=== PATIENT | male | born 1980 | race Caucasian/White ===

== ENCOUNTER 2017-05-29 07:00 | Day surgery (SDC) | payer BC ==
[2017-05-26 11:40] VITALS: BMI 36.1
[2017-05-29 08:13] LABS: #Basophils 0.1 thou/uL (0.0-0.2); #Eosinphils 0.9 thou/uL (0.0-0.7); #Lymphocytes 3.3 thou/uL (1.20-3.40); #Monocytes 0.9 thou/uL (0.11-0.59); %Basophils 1.6 % (0.0-1.0); %Eosinophils 9.2 % (0.0-10.0); %Lymphocytes 35.6 % (21.0-51.0); %Monocytes 10.2 % (0.0-10.0); %Neutrophils 43.5 % (42.0-75.0); Mean Corpuscular HGB CONC 33.1 g/dL (32.0-36.0); Mean Corpuscular Hemoglobin 32.1 pg (27.0-31.0); Mean Corpuscular Volume 96.8 fl (80.0-94.0); Platelet Count 301 thou/uL (130-400); RBC Distribution Width 11.7 % (11.5-14.5); Red Blood Cell (RBC) Count 4.67 mill/uL (4.70-6.10); White Blood Cell (WBC) Count 9.3 thou/uL (4.8-10.8)
[2017-05-29 08:32] LABS: Anion Gap 12 mmol/L (10-20); BUN (Urea Nitrogen) 13 mg/dL (8.9-20.6); Calc. Creatinine Clearance 181 mL/min (70-130); Calcium 9.9 mg/dL (7.8-10.44); Carbon Dioxide 24 mmol/L (22-29); Chloride 105 mmol/L (98-107); Estimated GFR-MDRD 83; Glucose 107 mg/dL (70-105); Potassium 4.2 mmol/L (3.5-5.1); Sodium 137 mmol/L (136-145)
[2017-05-29] MEDS ORDERED: Midazolam HCl 2 mg/2 ml Vial ONE (08:34)
[2017-05-29] MEDS ORDERED: CEFAZOLIN/Water 2 GM/20 ML SYRINGE ONE (08:34)
[2017-05-29] MEDS ORDERED: Sodium Chloride 0.9% 10 ML ONE (09:11)
[2017-05-29] MEDS ORDERED: Clindamycin/D5W 900 mg/50 ml Premix Bag ONE (09:31)
[2017-05-29] MEDS ORDERED: Levofloxacin 500 mg/D5W 100 ml Premix Bag ONE (09:31)
[2017-05-29] MEDS ORDERED: Fentanyl 250 MCG/5 ML VIAL ONE (09:32)
[2017-05-29] MEDS ORDERED: Fentanyl 100 MCG/2 ML VIAL ONE ×3 (10:18→11:55)
--- NOTE | 2017-05-29 10:59 | OP ---
DATE OF SURGERY: 05/29/2017 SURGEON: Darci Malone M.D. PIPING MANAGER: Leo. PROCEDURE PERFORMED: Right L5-S1 laminectomy, facetectomy, foraminotomy, and diskectomy, interbody a rthrodesis, intravertebral biomechanical device, local morselized autograft, demineralized bone matri x, anterior titanium instrumentation, posterolateral arthrodesis, pedicle screw instrumentation, L5-S 1. PROCEDURE IN DETAIL: The patient was brought into the operating room intubated. He was rolled in th e prone position on gel-filled chest rolls. The previous incision was reopened and extended and the right L5-S1 region was exposed. We identified the previous hemilaminectomy and then performed a righ t L5-S1 laminectomy, facetectomy, and foraminotomy. We explored the disk space and found a large ext ruded disk herniation, removed in one very large fragment. A complete decompression of all neural el ements was achieved. Next, the bony endplates at L5-S1 were decorticated for the purpose of arthrode sis and appropriately sized intravertebral biomechanical PEEK device was brought into the field, fill ed with demineralized bone matrix and local morselized autograft, and tapped into place securely at L 5-S1. Next, pedicle screws were placed at right L5 and right S1 using lateral fluoroscopic guidance and the positioning was confirmed by x-ray. Artis was secured between the screws, connected by nuts wh ich were final tightened. The wound was then extensively irrigated, immaculate hemostasis was secure d. A combination of demineralized bone matrix and local morselized autograft was laid over the colby ar and posterolateral surfaces for the purpose of arthrodesis. Vancomycin powder was applied and the wound was then closed in anatomic layers.
[2017-05-29] MEDS ORDERED: Propofol 200 MG/20 ML VIAL ONE (13:43)
[2017-05-29] MEDS ORDERED: PHENYLEPHRINE-NS 100 MCG/ML 10 ML SYRINGE ONE (13:43)
[2017-05-29] MEDS ORDERED: Ondansetron HCl/PF 4 MG/2 ML Vial ONE ×2 (13:43→17:07)
[2017-05-29] MEDS ORDERED: Ketorolac Tromethamine 30 MG/ML VIAL ONE (13:43)
[2017-05-29] MEDS ORDERED: Lidocaine 1% PF 5 ML VIAL ONE (13:43)
[2017-05-29] MEDS ORDERED: Dexamethasone 20 MG/5 ML VIAL ONE (13:43)
--- NOTE | 2017-05-29 17:50 | EKG ---
Test Reason : PREOP Blood Pressure : / mmHG Vent. Rate : 074 BPM Atrial Rate : 074 BPM P-R Int : 158 ms QRS Dur : 076 ms QT Int : 384 ms P-R-T Axes : 047 075 053 degrees QTc Int : 426 ms Normal sinus rhythm Normal ECG No previous ECGs available Confirmed by EASTON CASTANEDA, DR. Correa ([id number]) on 05/29/2017 5:49:41 PM Referred By: RAUL Confirmed By:DR. Madeline MCCORMACK MD
[2017-05-29] MEDS ORDERED: HYDROcodone/Acetaminophen 5/325 mg Tablet ONE (18:51)
[2017-05-29] MEDS ORDERED: Promethazine HCl 25 MG/ML VIAL ONE (19:07)
== END 2017-05-29 19:15 | disposition home or self-care (01) ==
LOC: SDC 07:00
PROVIDERS: ATTEND Neurological Surgery
PROC: 0ST40ZZ Resection of Lumbosacral Disc, Open Approach (ICD-10-PCS; principal; 2017-05-29)
PROC: 0SG30AJ Fusion of Lumbosacral Joint with Interbody Fusion Device, Posterior Approach, Anterior Column, Open Approach (ICD-10-PCS; principal; 2017-05-29)
DX: M54.16 Radiculopathy, lumbar region (principal); Z79.1 Long term (current) use of non-steroidal anti-inflammatories (NSAID); Z88.0 Allergy status to penicillin; Z88.2 Allergy status to sulfonamides; Z91.011 Allergy to milk products; Z91.010 Allergy to peanuts; Z98.818 Other dental procedure status; Z98.890 Other specified postprocedural states
CPT/HCPCS: 36415; 76001; 80048; 85025; 93005; 93010; 96374; 96375; A4216; C1713; C1768; J0131; J1956; J2250; J2405; J2550; J3010; J3370; J3490

== ENCOUNTER 2017-06-14 15:59 | Outpatient (CLI) | payer BC ==
--- NOTE | 2017-06-14 16:17 | RAD ---
TWO VIEWS OF THE LUMBOSACRAL SPINE 06/14/17 COMPARISON: None. HISTORY: Lumbar degenerative disc disease. FINDINGS: Two views of the lumbosacral spine shows the patient to be status post posterior fusion of L5 and S1 with right sided pedicle screws. No perihardware lucency is seen. The vertebral bodies demonstrate no rmal alignment without subluxation. The overlying skin dora are seen from recent surgery. IMPRESSION: Postsurgical changes of the lower lumbosacral space without evidence of complication. POS: [facility]
== END 2017-06-14 16:00 | disposition home or self-care (01) ==
LOC: TBSIIMAG 15:59
PROVIDERS: ATTEND Physician Assistant
DX: M51.36 Other intervertebral disc degeneration, lumbar region (principal)
CPT/HCPCS: 72100

== ENCOUNTER 2017-08-03 12:43 | Outpatient (CLI) | payer BC ==
--- NOTE | 2017-08-03 14:44 | RAD ---
2 VIEWS LUMBAR SPINE: Date: 08/03/17 HISTORY: Back pain FINDINGS/IMPRESSION: Two views of the lumbar spine demonstrate pedicle screws fusing the right L5 and S1 levels. No eviden ce of vertebral body fractures, subluxations, or bony lesions seen. Some subtle posterior osteophytes seen at L4-5. Postsurgical changes seen at L5-S1. No other abnormality seen. POS: [facility]
== END 2017-08-03 12:44 | disposition home or self-care (01) ==
LOC: TBSIIMAG 12:43
PROVIDERS: ATTEND Neurological Surgery
DX: M54.16 Radiculopathy, lumbar region (principal); Z98.890 Other specified postprocedural states; Z98.1 Arthrodesis status
CPT/HCPCS: 72100

== ENCOUNTER 2017-11-16 10:02 | Outpatient (CLI) | payer BC ==
--- NOTE | 2017-11-16 11:21 | RAD ---
LUMBOSACRAL SPINE TWO VIEWS: HISTORY: Fall 1-1/2 months ago with back pain. The patient had back surgery in May 2017. COMPARISON: 08/03/2017 FINDINGS: Two views of the lumbosacral spine show the patient to be status post posterior fusion of L5 and S1 w ith right-sided pedicle screws. No perihardware lucency is seen. The vertebral bodies demonstrate n ormal height and alignment without fracture or subluxation. IMPRESSION: Post surgical changes of the lumbar spine without acute osseous abnormality. POS: [facility]
== END 2017-11-16 10:03 | disposition home or self-care (01) ==
LOC: TBSIIMAG 10:02
PROVIDERS: ATTEND Neurological Surgery
DX: M54.16 Radiculopathy, lumbar region (principal); Z98.890 Other specified postprocedural states
CPT/HCPCS: 72100

== ENCOUNTER 2018-02-14 14:56 | Outpatient (CLI) | payer OTHER ==
--- NOTE | 2018-02-14 17:15 | RAD ---
LUMBAR SPINE THREE VIEW 02/14/18 HISTORY: Lumbar stenosis. COMPARISON: Radiograph 11/16/17. FINDINGS: Similar appearance to the unilateral right sided L5-S1 posterior spinal fusion with hemidiscectomy ch bjorn. No acute fracture. No malalignment. No significant listhesis. IMPRESSION: Unchanged appearance of the posterior spinal fusion hardware. POS: [facility]
== END 2018-02-14 14:57 | disposition home or self-care (01) ==
LOC: TBSIIMAG 14:56
PROVIDERS: ATTEND Neurological Surgery
DX: M51.36 Other intervertebral disc degeneration, lumbar region (principal); Z98.1 Arthrodesis status
CPT/HCPCS: 72100

== ENCOUNTER 2021-06-16 08:00 | Inpatient (IN) | payer BC ==
[2021-06-30 13:07] VITALS: BMI 23.1
[2021-07-05] MEDS ORDERED: Fentanyl 250 MCG/5 ML VIAL ONE ×2 (06:46→09:17)
[2021-07-05] MEDS ORDERED: Midazolam HCl 2 mg/2 ml Vial ONE ×2 (06:46→07:04)
[2021-07-05] MEDS ORDERED: Levofloxacin 500 mg/D5W 100 ml Premix Bag ONE (06:53)
[2021-07-05] MEDS ORDERED: Clindamycin/D5W 900 mg/50 ml Premix Bag ONE (06:53)
[2021-07-05] MEDS ORDERED: Dexamethasone 20 MG/5 ML VIAL ONE (07:25)
[2021-07-05] MEDS ORDERED: diphenhydrAMINE 50 MG/ML VIAL ONE (07:25)
[2021-07-05] MEDS ORDERED: PROPOFOL 200 MG/20 ML VIAL ONE (07:25)
[2021-07-05] MEDS ORDERED: Lidocaine 1% PF 5 ML VIAL ONE (07:25)
[2021-07-05] MEDS ORDERED: GLYCOPYRROLATE/PF 0.2 MG/ML VIAL ONE (07:25)
[2021-07-05] MEDS ORDERED: Ondansetron PF 4 MG/2 ML Vial ONE (07:25)
[2021-07-05] MEDS ORDERED: Ketorolac Tromethamine 30 MG/ML VIAL ONE (07:25)
[2021-07-05] MEDS ORDERED: Rocuronium Bromide 10 MG/ML (10ML VIAL) ONE (07:25)
[2021-07-05] MEDS ORDERED: Tamsulosin HCl 0.4 MG CAP ONE (09:18)
[2021-07-05] MEDS ORDERED: Lidocaine 1% MPF 2 ML VIAL ONE (10:57)
[2021-07-05] MEDS ORDERED: HYDROcodone/Acetaminophen 5/325 mg Tablet ONE (11:03)
== END 2021-07-05 12:10 | disposition home or self-care (01) | DRG 455 ==
LOC: EDSTATUS 06-21 08:00 → SURG A 07-05 05:55
PROVIDERS: ADMIT Neurological Surgery; ATTEND Neurological Surgery
PROC: 0SG00AJ Fusion of Lumbar Vertebral Joint with Interbody Fusion Device, Posterior Approach, Anterior Column, Open Approach (ICD-10-PCS; principal; 2021-07-05)
PROC: 0SG0071 Fusion of Lumbar Vertebral Joint with Autologous Tissue Substitute, Posterior Approach, Posterior Column, Open Approach (ICD-10-PCS; 2021-07-05)
PROC: 0SG3071 Fusion of Lumbosacral Joint with Autologous Tissue Substitute, Posterior Approach, Posterior Column, Open Approach (ICD-10-PCS; 2021-07-05)
PROC: 0QP004Z Removal of Internal Fixation Device from Lumbar Vertebra, Open Approach (ICD-10-PCS; 2021-07-05)
PROC: 0QP104Z Removal of Internal Fixation Device from Sacrum, Open Approach (ICD-10-PCS; 2021-07-05)
PROC: 00NY0ZZ Release Lumbar Spinal Cord, Open Approach (ICD-10-PCS; 2021-07-05)
PROC: 0SB20ZZ Excision of Lumbar Vertebral Disc, Open Approach (ICD-10-PCS; 2021-07-05)
DX: M48.062 Spinal stenosis, lumbar region with neurogenic claudication (principal); Z88.0 Allergy status to penicillin; Z88.2 Allergy status to sulfonamides; Z91.011 Allergy to milk products; Z91.010 Allergy to peanuts; Z01.818 Encounter for other preprocedural examination
CPT/HCPCS: 76000; 80048; 85027; 93005; C1713; C1768; C1776; J1100; J1200; J1885; J1956; J2250; J2405; J2704; J3010; J3370; J3490

== ENCOUNTER 2021-07-02 10:28 | Outpatient (CLI) | payer BC ==
[2021-07-02 12:03] LABS: Hemoglobin 13.9 g/dL (13.5-17.5); Mean Corpuscular HGB CONC 33.4 g/dL (32.0-36.0); Mean Corpuscular Hemoglobin 31.7 pg (27.0-33.0); Mean Platelet Volume 8.9 fl (7.4-10.4); Platelet Count 336 10x3/uL (150-450); RBC Distribution Width 12.8 % (11.5-14.5); Red Blood Cell (RBC) Count 4.38 10x6/uL (4.32-5.72)
[2021-07-02 12:20] LABS: Anion Gap 13 mmol/L (10-20); BUN (Urea Nitrogen) 15 mg/dL (8.9-20.6); Calc. Creatinine Clearance 0 mL/min (70-130); Calcium 9.4 mg/dL (7.8-10.44); Carbon Dioxide 25 mmol/L (22-29); Chloride 108 mmol/L (98-107); Glucose 103 mg/dL (70-105); Potassium 4.4 mmol/L (3.5-5.1); Sodium 142 mmol/L (136-145)
== END 2021-07-02 10:29 | disposition home or self-care (01) ==
LOC: LABBT 10:28
PROVIDERS: ATTEND Neurological Surgery
DX: Z01.818 Encounter for other preprocedural examination (principal); M48.062 Spinal stenosis, lumbar region with neurogenic claudication
CPT/HCPCS: 80048; 85027; 93005; 93010

== ENCOUNTER 2021-09-13 09:29 | Outpatient (CLI) | payer BC | END 2021-09-13 09:30 | disposition home or self-care (01) | LOC: TBSIIMAG 09:29 | PROVIDERS: ATTEND Physician Assistant | DX: M48.062 Spinal stenosis, lumbar region with neurogenic claudication (principal); Z98.890 Other specified postprocedural states | CPT/HCPCS: 72100 ==

== ENCOUNTER 2021-10-28 06:55 | Day surgery (SDC) | payer BC ==
[2021-10-26 10:38] VITALS: BMI 23.1
[2021-10-28] MEDS ORDERED: Lorazepam 1 MG TAB ONE (07:25)
[2021-10-28 13:02] VITALS: BP 129/82; TEMP 98.3
== END 2021-10-28 09:55 | disposition home or self-care (01) ==
LOC: RAD 06:55
PROVIDERS: ATTEND Neurological Surgery
PROC: B01B1ZZ Fluoroscopy of Spinal Cord using Low Osmolar Contrast (ICD-10-PCS; principal; 2021-10-28)
DX: M54.16 Radiculopathy, lumbar region (principal); M25.78 Osteophyte, vertebrae; Z79.1 Long term (current) use of non-steroidal anti-inflammatories (NSAID); Z79.899 Other long term (current) drug therapy; Z88.0 Allergy status to penicillin; Z88.2 Allergy status to sulfonamides; Z91.010 Allergy to peanuts; Z91.011 Allergy to milk products; Z98.1 Arthrodesis status
CPT/HCPCS: 62304; 72132

== ENCOUNTER 2022-06-24 10:56 | Outpatient (CLI) | payer BC, OTHER | END 2022-06-24 10:57 | disposition home or self-care (01) | LOC: TBSIIMAG 10:56 | PROVIDERS: ATTEND Neurological Surgery | DX: M54.16 Radiculopathy, lumbar region (principal); Z98.890 Other specified postprocedural states | CPT/HCPCS: 72100 ==